=== PATIENT | female | born 2000 | race African-American/Black ===

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

== ENCOUNTER 2018-02-10 08:42 | Emergency (ER) | payer OTHER ==
[~2018-02-10] VITALS: Ht 152.4 cm; Wt 44.0 kg
[~2018-02-10 08:42] MED LIST changes: +KEFLEX500 MG PO
[2018-02-10 09:25] LABS: HEMOGLOBIN 11.8 g/dl (12.0-16.0); IMMATURE GRANULOCYTES 0.3 % (0.0-1.0); MEAN CORPUSCULAR HGB 23.6 pG CALC (26.0-32.0); MEAN CORPUSCULAR HGB CONC 31.1 g/L CALC (32.0-36.0); NEUT# 4.51 thou/uL (2.00-7.15); RED CELL DISTRI WIDTH 17.7 % (11.5-15.5)
[2018-02-10 09:26] LABS: URINE BILIRUBIN - DIPSTICK NEGATIVE (NEGATIVE); URINE BLOOD DIPSTICK NEGATIVE (NEGATIVE); URINE COLOR YELLOW; URINE GLUCOSE - DIPSTICK NEGATIVE (NEGATIVE); URINE KETONE NEGATIVE (NEGATIVE); URINE LEUK ESTERASE NEGATIVE (NEGATIVE); URINE NITRITE - DIPSTICK NEGATIVE (Negative); URINE PROTEIN - DIPSTICK NEGATIVE (NEG-TRACE); URINE SPECIFIC GRAVITY 1.025; URINE UROBILINOGEN - DIPSTICK 0.2 E.U./dL (0.2)
[2018-02-10 09:32] LABS: URINE CLARITY CLEAR
[2018-02-10 09:33] LABS: ANION GAP 18 (6-22 (CALC)); BILIRUBIN, TOTAL 0.7 mg/dL (0.0-1.4); BUN 11 mg/dL (7-17); BUN/CREATININE RATIO 19 (12-20 (CALC)); CARBON DIOXIDE 22 mmol/l (22-30); CHLORIDE 104 mmol/l (95-108); CREATININE 0.6 mg/dL (0.5-1.0); GFR > 60 ML/MIN (>=60 (CALC)); GFR FOR AFR.AMER. > 60 ML/MIN (>=60 (CALC)); LIPASE 251 u/l (23-300); SGOT/AST 16 u/l (14-36); SGPT/ALT 27 u/l (9-52); SODIUM 140 mmol/l (137-146)
[2018-02-10 09:37] LABS: ALBUMIN 4.4 g/dL (3.2-5.0); ALKALINE PHOSPHATASE 53 u/l (38-126); TOTAL PROTEIN 7.9 g/dL (6.3-8.2)
[2018-02-10] MEDS ORDERED: ONDANSETRON4 MG PO (10:22)
[2018-02-10 10:50] VITALS: BP 101/57
== END 2018-02-10 10:50 | disposition home or self-care (01) | DRG 392 ==
LOC: ED 08:42
PROVIDERS: Family Medicine
DX: K52.9 Noninfective gastroenteritis and colitis, unspecified (principal); R11.2 Nausea with vomiting, unspecified

== ENCOUNTER 2018-03-13 20:10 | Emergency (ER) | payer OTHER ==
[~2018-03-13] VITALS: Ht 152.4 cm; Wt 45.8 kg
[~2018-03-13 20:10] MED LIST changes: +BACTRIM DS1 TAB PO; +MOTRIN800 MG PO; +ONDANSETRON4 MG PO
[2018-03-13 21:15] VITALS: BP 110/72
== END 2018-03-13 21:15 | disposition home or self-care (01) ==
LOC: ED 20:10
DX: Z48.01 Encounter for change or removal of surgical wound dressing (principal); R10.2 Pelvic and perineal pain

== ENCOUNTER 2018-04-21 00:51 | Emergency (ER) | payer OTHER ==
[~2018-04-21] VITALS: Ht 152.4 cm; Wt 46.8 kg
[2018-04-21 01:19] LABS: HEMATOCRIT 33.9 % (37.0-47.0); HEMOGLOBIN 10.8 g/dl (12.0-16.0); IMMATURE GRANULOCYTES 0.2 % (0.0-5.0); MEAN CELL VOLUME 75.7 fL CALC (80.0-100.0); MEAN CORPUSCULAR HGB 24.1 pG CALC (26.0-32.0); MEAN CORPUSCULAR HGB CONC 31.9 g/L CALC (32.0-36.0); NEUT# 2.53 thou/uL (2.00-7.15); RED BLOOD COUNT 4.48 mill/uL (4.20-5.60); RED CELL DISTRI WIDTH 16.4 % (11.5-15.5)
[2018-04-21 01:32] LABS: ALBUMIN 4.2 g/dL (3.2-5.0); ALKALINE PHOSPHATASE 49 u/l (38-126); BILIRUBIN, TOTAL 0.3 mg/dL (0.0-1.4); BUN 6 mg/dL (7-17); BUN/CREATININE RATIO 10 (12-20 (CALC)); CARBON DIOXIDE 21 mmol/l (22-30); CHLORIDE 110 mmol/l (95-108); CREATININE 0.6 mg/dL (0.5-1.0); GFR > 60 ML/MIN (>=60 (CALC)); GFR FOR AFR.AMER. > 60 ML/MIN (>=60 (CALC)); SGOT/AST 15 u/l (14-36); SGPT/ALT 26 u/l (9-52); SODIUM 142 mmol/l (137-146); TOTAL PROTEIN 7.4 g/dL (6.3-8.2)
[2018-04-21 01:33] LABS: ANION GAP 15 (6-22 (CALC))
[2018-04-21 01:44] LABS: MYOGLOBIN 18 ng/mL (0 - 62)
[2018-04-21 02:38] VITALS: BP 113/73
== END 2018-04-21 02:39 | disposition home or self-care (01) ==
LOC: ED 00:51
PROVIDERS: Family Medicine
DX: F41.0 Panic disorder [episodic paroxysmal anxiety] (principal); F32.9 Major depressive disorder, single episode, unspecified; R07.89 Other chest pain

== ENCOUNTER 2018-05-25 00:09 | Emergency (ER) | payer OTHER ==
[~2018-05-25] VITALS: Ht 152.4 cm; Wt 45.8 kg
[2018-05-25] MEDS ORDERED: PRAZOSIN HCL1 M1 PO (00:22)
[2018-05-25] MEDS ORDERED: FLUOXETINE HCL20 MG PO (00:22)
[2018-05-25 00:56] LABS: URINE BILIRUBIN - DIPSTICK NEGATIVE (NEGATIVE); URINE BLOOD DIPSTICK NEGATIVE (NEGATIVE); URINE COLOR YELLOW; URINE GLUCOSE - DIPSTICK NEGATIVE (NEGATIVE); URINE KETONE NEGATIVE (NEGATIVE); URINE LEUK ESTERASE NEGATIVE (NEGATIVE); URINE NITRITE - DIPSTICK NEGATIVE (Negative); URINE PH 7.5 (4.5-8.0); URINE PROTEIN - DIPSTICK NEGATIVE (NEG-TRACE); URINE SPECIFIC GRAVITY 1.015
[2018-05-25 00:57] LABS: URINE CLARITY SL CLOUDY
[2018-05-25] MEDS ORDERED: BACTRIM DS1 TAB PO (01:02)
[2018-05-25 01:10] VITALS: BP 136/88
== END 2018-05-25 01:13 | disposition home or self-care (01) ==
LOC: ED 00:09
PROVIDERS: Emergency Medicine
DX: L08.9 Local infection of the skin and subcutaneous tissue, unspecified (principal); F32.9 Major depressive disorder, single episode, unspecified